=== PATIENT | male | born 1980 | race Caucasian/White ===

== ENCOUNTER 2022-10-28 00:49 | Emergency (ER) | payer OTHER ==
--- OUTSIDE RECORDS SUMMARY | 2022-10-28 00:53 | XMS REPORT | Continuity of Care Document ---
:1980 Author Organization [facility] t Address [address] [place] [address] [place] [id number] Care Team Providers Name Role Phone Thelma Schulte MD Primary Care Physician IRENE FAIR Attending Clinician Unavailable Thelma Schulte MD Attending Clinician TRI AGUIRRE Attending Clinician Unavailable THELMA SCHULTE Attending Clinician Unavailable GILL HEIN Attending Clinician Unavailable Mallory Valladares RN Attending Clinician Unavailable CHRISTEN CURRAN Attending Clinician Unavailable Lab, Adc Fam Pob I Attending Clinician Unavailable Gill Santacruz Attending Clinician Payers Payer Name Policy Type Policy Number Effective Date Expiration Date S ource CIGNA 2 [id number] 2018 00:00:00 CIGNA GENERIC [id number] 2018 00:00:00 Problems Condition Condition Condition Status Onset Resolution Last Treating Co mments Source Name Details Category Date Date Treatment Clinician Date No known No known Disease Unive rs active active ity of problems problems [facility] Allergies, Adverse Reactions, Alerts Allergy Allergy Status Severity Reaction(s) Onset Inactive Treating Comm ents Source Name Type Date Date Clinician NO KNOWN Drug Active Univers ALLERGIE Class ity of S [facility] Social History Social Habit Start Date Stop Date Quantity Comments Source Gender identity [facility] orientation [facility] History HADLEYGA Marielena Seybo ld Alcohol Std Drinks History SDOH Marielena Seybo ld Alcohol Binge History SDOH Marielena Seybo ld Alcohol Comment Exposure to Not sure Marielenaobdulio Bellol d SARS-CoV-2 (event) History of tobacco Chews Tobacco Prem obdulio Seybold use Alcohol intake 2020-12-24 2020-12-24 Lifetime Marielena Trejo bold 00:00:00 00:00:00 non-drinker (finding) History SDOH 2020-01-09 2020-01-09 1 Marielena Danielsonybo ld Alcohol Frequency 00:00:00 00:00:00 Tobacco use and 2020-01-09 2020-01-09 User of Marielena Danielson ybrenata exposure 00:00:00 00:00:00 smokeless tobacco Tobacco Comment 2016-07-05 2016-07-05 1 can every 2 Univer sity of 00:00:00 00:00:00 year [facility] Sex Assigned At [address] [facility] k[facility] 00:00:00 00:00:00 [facility] Smoking Status Start Date Stop Date Source Tobacco smoking consumption [facility] unknown Never smoker [facility] Medications Ordered Filled Start Stop Current Ordering Indication Dosage Frequency Signature Comments Components Source Medication Medication Date Date Medication? Clinician (SIG) Name Name TRAZODONE 2020-02 Yes Take by Chaya alfred HCL OR 0-29 mouth Seybold 10:11: 10 Omeprazole 2020-02 Yes Take by Marilyn ey (PRILOSEC 0-29 mouth Seybold OR) 10:11: 10 Meloxicam 2020-02 Yes [id number] One tablet Marielena 7.5 MG oral 0-29 by mouth Seyb old Tablet 00:00: BID prn 00 pain (take with food to prevent GI upset) Pantoprazol Yes [id number] One tablet Marielena e Sodium 20 8-16 by mouth Seyb old MG oral 00:00: BID Tablet 00 Delayed Response Albuterol 2019-02 Yes [id number] 1-2 puffs Marielena Sulfate 108 1-13 [id number] Q6 hours S eybold (90 Base) 00:00: PRN MCG/ACT 00 sob/wheezi inhalation ng AEROSOL POWDER, BREATH ACTIVATED benzonatate 2018-02 Yes [id number] 100mg Take 1 Univers 100 mg 1-06 capsule by ity of capsule 00:00: mouth 3 [place] 00 (three) Medical times Branch daily as needed for Cough. azithromyci 2018-02 Yes [id number] 250mg Take 1 Univers n 1-06 tablet by ity of (ZITHROMAX 00:00: mouth [place] Z-NELLY) 250 00 SEE-INSTRU Med ical mg tablet CTIONS. Branch Take 500 mg day 1, then 250 mg days 2 to 5. acetaminoph 2018-02 Yes [id number] 1{tbl} Take 1-2 Univers en-codeine 1-06 tablets by ity of 300-30 mg 00:00: mouth [place] tablet 00 every 4 Medical (four) Branch hours as needed (cough). loratadine- 2018-02 Yes [id number] 1{tbl} Take 1 Univers pseudoephed 1-06 tablet by ity of rine 00:00: mouth [place] (CLARITIN-D 00 daily. Medica l 24 HOUR) Branch 10-240 mg per 24 hr tablet benzonatate 2018-02 Yes [id number] 100mg Take 1 Univers 100 mg 1-06 capsule by ity of capsule 00:00: mouth 3 [place] 00 (three) Medical times Branch daily as needed for Cough. azithromyci 2018-02 Yes [id number] 250mg Take 1 Univers n 1-06 tablet by ity of (ZITHROMAX 00:00: mouth [place] Z-NELLY) 250 00 SEE-INSTRU Med ical mg tablet CTIONS. Branch Take 500 mg day 1, then 250 mg days 2 to 5. acetaminoph 2018-02 Yes [id number] 1{tbl} Take 1-2 Univers en-codeine 1-06 tablets by ity of 300-30 mg 00:00: mouth [place] tablet 00 every 4 Medical (four) Branch hours as needed (cough). loratadine- 2018-02 Yes [id number] 1{tbl} Take 1 Univers pseudoephed 1-06 tablet by ity of rine 00:00: mouth [place] (CLARITIN-D 00 daily. Medica l 24 HOUR) Branch 10-240 mg per 24 hr tablet benzonatate 2018-02 Yes [id number] 100mg Take 1 Univers 100 mg 1-06 capsule by ity of capsule 00:00: mouth 3 [place] 00 (three) Medical times Branch daily as needed for Cough. azithromyci 2018-02 Yes [id number] 250mg Take 1 Univers n 1-06 tablet by ity of (ZITHROMAX 00:00: mouth [place] Z-NELLY) 250 00 SEE-INSTRU Med ical mg tablet CTIONS. Branch Take 500 mg day 1, then 250 mg days 2 to 5. acetaminoph 2018-02 Yes [id number] 1{tbl} Take 1-2 Univers en-codeine 1-06 tablets by ity of 300-30 mg 00:00: mouth [place] tablet 00 every 4 Medical (four) Branch hours as needed (cough). loratadine- 2018-02 Yes [id number] 1{tbl} Take 1 Univers pseudoephed 1-06 tablet by ity of rine 00:00: mouth [place] (CLARITIN-D 00 daily. Medica l 24 HOUR) Branch 10-240 mg per 24 hr tablet ketorolac Yes [id number] 10mg Take 1 Un randy 10 mg 4-10 tablet by ity of tablet 00:00: mouth [place] 00 every 6 Medical (six) Branch hours as needed for Pain (scale 7-10). tamsulosin Yes [id number] .4mg Take 1 U nivers 0.4 mg 24 4-10 capsule by ity of hr capsule 00:00: mouth at Dev as 00 bedtime. Medical Branch ondansetron Yes [id number] 4mg Take 0.5 Univers 8 mg 4-10 tablets by ity of disintegrat 00:00: mouth [place] ing tablet 00 every 4 Medica l (four) Branch hours as needed for Nausea and Vomiting (N/V). ketorolac Yes [id number] 10mg Take 1 Un randy 10 mg 4-10 tablet by ity of tablet 00:00: mouth [place] 00 every 6 Medical (six) Branch hours as needed for Pain (scale 7-10). tamsulosin Yes [id number] .4mg Take 1 U nivers 0.4 mg 24 4-10 capsule by ity of hr capsule 00:00: mouth at Dev as 00 bedtime. Medical Branch ondansetron Yes [id number] 4mg Take 0.5 Univers 8 mg 4-10 tablets by ity of disintegrat 00:00: mouth [place] ing tablet 00 every 4 Medica l (four) Branch hours as needed for Nausea and Vomiting (N/V). ketorolac 2019- Yes [id number] 10mg Take 1 Un randy 10 mg 4-10 tablet by ity of tablet 00:00: mouth [place] 00 every 6 Medical (six) Branch hours as needed for Pain (scale 7-10). tamsulosin 2018- Yes [id number] .4mg Take 1 U nivers 0.4 mg 24 4-10 capsule by ity of hr capsule 00:00: mouth at Dev as 00 bedtime. Medical Branch ondansetron 2018-0 Yes [id number] 4mg Take 0.5 Univers 8 mg 4-10 tablets by ity of disintegrat 00:00: mouth [place] ing tablet 00 every 4 Medica l (four) Branch hours as needed for Nausea and Vomiting (N/V). Vital Signs Vital Name Observation Time Observation Value Comments Source Systolic blood pressure 2020-12-24 15:10:00 138 mm[Hg] Marielena Bellold Diastolic blood 2020-12-24 15:10:00 86 mm[Hg] Chaya Kennedy pressure Heart rate 2020-12-24 15:10:00 76 /min Marielena Rachid michaela Body temperature 2020-12-24 15:10:00 36.17 Vangie Marilyn ey Seybold Respiratory rate 2020-12-24 15:10:00 20 /min Marilyn liriano ybold Body height 2020-12-24 15:10:00 185.4 cm Marielena Rachid michaela Body weight 2020-12-24 15:10:00 127.914 kg Marielena S michaela BMI 2020-12-24 15:10:00 37.21 kg/m2 Marielena jennings Procedures Procedure Date / Time Performed Performing Clinician [facility] FOOT WEIGHT BEARING RIGHT 3 2020-12-24 15:00:01 Thelma Schulte V Plan of Care Planned Activity Planned Date Details Comments Source Future Scheduled 2022-10-24 COVID-19 VACCINE [facility] Test 01:06:00 (#1) [code = COVID-19 VACCINE (#1)] Future Scheduled 2022-10-24 [facility] Test 01:06:00 screening (procedure) [code = 737382112] Future Scheduled 2022-10-24 INFLUENZA VACCINE [facility] Test 01:06:00 (#1) [code = INFLUENZA VACCINE (#1)] Encounters Start End Encounter Admission Attending Care Care Encounter Source Date/Time Date/Time Type Type Clinicians Facility Department ID 2022-11-06 2022-11-06 Outpatient IRENE FAIR MARIELENA TAYLOR [id number] Marielena 14:30:00 14:30:00 Seybol d 2020-12-24 2020-12-24 Office ANGELY Schulte [id number] Marielena 09:40:30 09:55:30 Visit Thelma [id number] Se ybold [id number] 2020-12-24 2020-12-24 Outpatient MARIELENA TAYLOR [id number] Marielena 09:50:00 09:50:00 Seybol d 2020-10-19 2020-10-19 Outpatient ZACH TAYLOR [id number] Marielena 08:00:00 08:00:00 LIBRADO FRANCKIsaias dickerson 2020-10-13 2020-10-13 Outpatient MARIELENA SCHULTE [id number] Marielena 00:00:00 00:00:00 THELMA Seybol d 2020-10-12 2020-10-12 Outpatient [facility]ASH [facility] [id number] [place] 00:00:00 00:00:00 THELMA [address] 2020-10-11 2020-10-11 Outpatient MARIELENA SCHULTE [id number] Marielena 09:00:00 09:00:00 THELMA Seybol d 2019-09-02 2019-09-02 Outpatient Edi HEIN [facility] [id number] [facility] 08:20:00 08:20:00 GILL duque [facility] 2019-08-24 2019-08-24 Telephone TAYLOR Valladares [id number] Univers 00:00:00 00:00:00 Mallory CAMACH[id number] [facility] [id number] Dev as [id number] [address] 2019-08-24 2019-08-24 Telephone TAYLOR Valladares [id number] 00:00:00 00:00:00 Mallory S JANICE [id number] [facility] [id number] [facility] 2019-08-23 2019-08-23 Outpatient R BINA [facility] [id number] Univers 08:15:00 08:15:00 CHRISTEN ity [facility] 2019-08-15 2019-08-15 Laboratory Lab, Adc Fam Pob I [facility] [id number] Univers 10:19:59 10:39:59 Only Gill Hein [facility] [id number] [facility] [id number] Dev as [place] [id number] Ri dical [address] Office [address] 2019-08-15 2019-08-15 Outpatient R [facility] [id number] Univers 10:20:00 [facility]:20:00 [facility] This patient has no known results.
[2022-10-28 01:34] LABS: Absolute Lymphocytes (CBC) 1.3 K/uL (0.7-4.9); Hematocrit 44.8 % (39.6-49.0); Lymphocytes % 21.9 % (15.3-44.8); MCV 86.3 fL (80-100); MPV 7.8 fL (7.6-11.3); Platelets 209 thou/uL (152-406); RBC Red Blood Cell Count 5.19 M/uL (4.33-5.43)
[2022-10-28] MEDS ORDERED: NA CHLORIDE 0.9% 1,000 ML ONE (01:34)
[2022-10-28] MEDS ORDERED: KETOROLAC 30 MG/ML INJ ONE (01:34)
[2022-10-28 01:53] LABS: Albumin 4.2 g/dL (3.4-5.0); Bilirubin Total 0.3 mg/dL (0.2-1.0); Potassium 4.1 mEq/L (3.5-5.1); Protein, Total 7.9 g/dL (6.4-8.2)
[2022-10-28] MEDS ORDERED: TAMSULOSIN 0.4 MG SR CAP ONE (02:37)
[2022-10-28] MEDS ORDERED: MAGNESIUM SULFATE 1 gm IVPB 1 GM/100 ML BAG IV ONE (02:37)
[2022-10-28] MEDS ORDERED: MORPHINE 4 MG/ML SYR ONE (02:37)
--- NOTE | 2022-10-28 02:48 | EDPHYS ---
Physician Documentation [facility] Name: Shar Penny Age: 42 yrs Sex: Male : 1980 Arrival Date: 10/28/2022 Time: 00:49 Bed 8 Private MD: Derrell Siddiqi HPI: 10/28 01:36 This 42 yrs old Male presents to ER via Ambulatory with complaints of Possible Kidney snw Stone. 02:07 The patient complains of pain in the left mid back and abdomen. Onset: The snw symptoms/episode began/occurred acutely. The patient has experienced similar episodes in the past, multiple times. Historical: - Allergies: 01:01 No Known Allergies; vc1 - Home Meds: 01: None [Active]; vc1 - PMHx: 01:01 Kidney stone; vc1 - PSHx: 01:01 None; vc1 - Immunization history:: Client reports having NOT received the Covid vaccine. - Social history:: Smoking status: Patient reports use of chewing tobacco. ROS: 02:07 Constitutional: Negative for fever, chills, and weight loss, Eyes: Negative for injury, snw pain, redness, and discharge, ENT: Negative for injury, pain, and discharge, Neck: Negative for injury, pain, and swelling, Cardiovascular: Negative for chest pain, palpitations, and edema, Respiratory: Negative for shortness of breath, cough, wheezing, and pleuritic chest pain, Back: Negative for injury and pain, : Negative for injury, bleeding, discharge, and swelling, MS/Extremity: Negative for injury and deformity, Skin: Negative for injury, rash, and discoloration, Neuro: Negative for headache, weakness, numbness, tingling, and seizure, Psych: Negative for depression, anxiety, suicide ideation, homicidal ideation, and hallucinations. 02:07 Abdomen/GI: Positive for abdominal pain, nausea, of the left lower quadrant. Exam: 02:06 Constitutional: This is a well developed, well nourished patient who is awake, alert, snw and in no acute distress. Head/Face: Normocephalic, atraumatic. Eyes: Pupils equal round and reactive to light, extra-ocular motions intact. Lids and lashes normal. Conjunctiva and sclera are non-icteric and not injected. Cornea within normal limits. Periorbital areas with no swelling, redness, or edema. ENT: Nares patent. No nasal discharge, no septal abnormalities noted. Tympanic membranes are normal and external auditory canals are clear. Oropharynx with no redness, swelling, or masses, exudates, or evidence of obstruction, uvula midline. Mucous membranes moist. Neck: Trachea midline, no thyromegaly or masses palpated, and no cervical lymphadenopathy. Supple, full range of motion without nuchal rigidity, or vertebral point tenderness. No Meningismus. Chest/axilla: Normal chest wall appearance and motion. Nontender with no deformity. No lesions are appreciated. Cardiovascular: Regular rate and rhythm with a normal S1 and S2. No gallops, murmurs, or rubs. Normal PMI, no JVD. No pulse deficits. Respiratory: Lungs have equal breath sounds bilaterally, clear to auscultation and percussion. No rales, rhonchi or wheezes noted. No increased work of breathing, no retractions or nasal flaring. Back: No spinal tenderness. No costovertebral tenderness. Full range of motion. Skin: Warm, dry with normal turgor. Normal color with no rashes, no lesions, and no evidence of cellulitis. MS/ Extremity: Pulses equal, no cyanosis. Neurovascular intact. Full, normal range of motion. Neuro: Awake and alert, GCS 15, oriented to person, place, time, and situation. Cranial nerves II-XII grossly intact. Motor strength 5/5 in all extremities. Sensory grossly intact. Cerebellar exam normal. Normal gait. Psych: Awake, alert, with orientation to person, place and time. Behavior, mood, and affect are within normal limits. 02:06 Abdomen/GI: Inspection: abdomen appears normal, Bowel sounds: normal, Palpation: moderate abdominal tenderness, in all quadrants, in the left lower quadrant. Vital Signs: 01:00 Weight 133.81 kg; Height 6 ft. 1 in. ; Pain 6/10; vc1 01:04 BP 121 / 93; Pulse 80; Resp 20; Temp 99.1; Pulse Ox 95% ; vc1 03:26 BP 137 / 95; Pulse 73; Resp 16; Temp 98; Pulse Ox 96% on R/A; rv 01:00 Body Mass Index 38.92 (133.81 kg, 185.42 cm) vc1 01:00 Pain Scale: Adult vc1 MDM: 01:22 Patient medically screened. richard 02:18 Differential diagnosis: nephrolithiasis, pyelonephritis, UTI. Data reviewed: vital snw signs, nurses notes, lab test result(s), radiologic studies. I considered the following discharge prescriptions or medication management in the emergency department Medications were administered in the Emergency Department. See MAR. Counseling: I had a detailed discussion with the patient and/or guardian regarding the historical points, exam findings, and any diagnostic results supporting the discharge/admit diagnosis, the presence of at least one elevated blood pressure reading (>120/80) during this emergency department visit, lab results, radiology results, the need for outpatient follow up, for definitive care, to return to the emergency department if symptoms worsen or persist or if there are any questions or concerns that arise at home. Response to treatment: the patient's symptoms have mildly improved after treatment. Special discussion: Based on the patient's Hx, exam, and Dx evaluation, there is no indication for emergent surgery or inpatient Tx. It is understood by the patient/guardian that if the Sx's persist or worsen they need to return immediately for re-evaluation. Based on the history and exam findings, there is no indication for further emergent testing or inpatient evaluation. I discussed with the patient/guardian the need to see the primary care provider for further evaluation of the symptoms. I discussed with the patient/guardian the need to see the urologist for further evaluation of the symptoms. 10/28 00:56 Order name: CBC with Diff; Complete Time: 02:14 snw 10/28 00:56 Order name: CMP; Complete Time: 01:55 snw 10/28 00:56 Order name: Lipase; Complete Time: 01:55 snw 10/28 00:56 Order name: CT Stone Protocol w 10/28 00:56 Order name: IV Saline Lock; Complete Time: 01:17 snw 10/28 00:56 Order name: Labs collected and sent; Complete Time: 01:17 snw Administered Medications: 01:25 Drug: NS 0.9% IV 1000 ml Route: IV; Rate: 1 bolus; Site: right antecubital; bp 03:38 Follow up: IV Status: Completed infusion; IV Intake: 1000ml rv 01:26 Drug: Ketorolac IVP 15 mg Route: IVP; Site: right antecubital; bp 03:38 Follow up: Response: No adverse reaction rv 02:31 Drug: morphine IVP or IV 4 mg Route: IVP; Infused Over: 4 mins; Site: right antecubital;bp 03:38 Follow up: Response: No adverse reaction rv 02:31 Drug: Magnesium Sulfate IVPB 1 grams Route: IVPB; Infused Over: 1 hrs; Site: right bp antecubital; 03:37 Follow up: Response: No adverse reaction; IV Status: Completed infusion rv 02:31 Drug: Flomax PO 0.4 mg Route: PO; bp 03:37 Follow up: Response: No adverse reaction rv Disposition Summary: 10/28/22 02:47 Discharge Ordered Location: Home snw Condition: Stable snw Diagnosis - Hydronephrosis with renal and ureteral calculous obstruction snw Followup: snw - With: Emergency Department - When: As needed - Reason: Worsening of condition Followup: snw - With: Private Physician - When: 2 - 3 days - Reason: Recheck today's complaints, Continuance of care, Re-evaluation by your physician Discharge Instructions: - Discharge Summary Sheet snw - Kidney Stones snw - Renal Colic snw - Hydronephrosis snw - Dietary Guidelines to Help Prevent Kidney Stones snw - Rehydration, Adult snw Forms: - Work release form snw - Medication Reconciliation Form snw - Thank You Letter snw - Antibiotic Education snw - Prescription Opioid Use snw - Patient Portal Instructions snw - Leadership Thank You Letter snw Prescriptions: - acetaminophen-codeine 300-30 mg Oral tablet - take 1 tablet by ORAL route every 6 hours as needed for pain; 18 tablet; snw Refills: 0, Product Selection Permitted - Mobic 7.5 mg Oral Tablet - take 1 tablet by ORAL route once daily take with food; 20 tablet; Refills: 0, snw Product Selection Permitted - promethazine 25 mg Oral Tablet - take 1 tablet by ORAL route every 6 hours As needed; 20 tablet; Refills: 0, snw Product Selection Permitted Signatures: Dispatcher [employer] Derrell Garcia MD MD cha Waters, Shelly, AYAKA-C BELLPERSON-Csnw Jose Ramon Chauhan, RN RN bp Candy Crisostomo RN RN vc1 Levi Mane RN rv
--- NOTE | 2022-10-28 02:48 | ER ---
Nurse's Notes [facility] Name: Shar Penny Age: 42 yrs Sex: Male : 1980 Arrival Date: 10/28/2022 Time: 00:49 Bed 8 Private MD: Diagnosis: Hydronephrosis with renal and ureteral calculous obstruction Presentation: 10/28 01:00 Chief complaint: Patient states: Severe abdominal pain, vomiting, I think I have vc1 another kidney stone. Coronavirus screen: Client denies travel out of the [place] in the last 14 days. At this time, the client does not indicate any symptoms associated with coronavirus-19. Ebola Screen: Patient negative for fever greater than or equal to 101.5 degrees Fahrenheit, and additional compatible Ebola Virus Disease symptoms Patient denies exposure to infectious person. Patient denies travel to an Ebola-affected area in the 21 days before illness onset. No symptoms or risks identified at this time. Onset of symptoms was October 27, 2022. 01:00 Method Of Arrival: Ambulatory vc1 01:00 Acuity: SCOTT 3 vc1 01:06 Initial Sepsis Screen: Does the patient meet any 2 criteria? No. Patient's initial vc1 sepsis screen is negative. Does the patient have a suspected source of infection? No. Patient's initial sepsis screen is negative. Risk Assessment: Do you want to hurt yourself or someone else? Patient reports no desire to harm self or others. Triage Assessment: 01:02 General: Appears in no apparent distress. uncomfortable, Behavior is calm, cooperative, vc1 appropriate for age. Pain: Complains of pain in right lower quadrant and left lower quadrant Pain radiates to low back area Pain currently is 6 out of 10 on a pain scale. at worst was 12 out of 10 on a pain scale. Quality of pain is described as sharp, Pain began 1 day ago. Is continuous, Noted to be grimacing. EENT: No deficits noted. No signs and/or symptoms were reported regarding the EENT system. Neuro: Level of Consciousness is awake, alert, obeys commands, Oriented to person, place, time, situation, Appropriate for age. Cardiovascular: No deficits noted. Respiratory: No deficits noted. GI: Reports lower abdominal pain. : Denies burning with urination, inability to void, urinary frequency. Derm: No deficits noted. No signs and/or symptoms reported regarding the dermatologic system. Musculoskeletal: No deficits noted. No signs and/or symptoms reported regarding the musculoskeletal system. Historical: - Allergies: 01:01 No Known Allergies; vc1 - Home Meds: 01:01 None [Active]; vc1 - PMHx: 01:01 Kidney stone; vc1 - PSHx: 01:01 None; vc1 - Immunization history:: Client reports having NOT received the Covid vaccine. - Social history:: Smoking status: Patient reports use of chewing tobacco. Screenin:06 Abuse screen: Denies threats or abuse. Nutritional screening: No deficits noted. vc1 Tuberculosis screening: No symptoms or risk factors identified. 01:18 [facility] ED Fall Risk Assessment (Adult) History of falling in the last 3 months, rv including since admission No falls in past 3 months (0 pts) Score/Fall Risk Level 0 - 2 = Low Risk Oriented to surroundings, Maintained a safe environment, Educated pt \T\ family on fall prevention, incl call for assistance when getting out of bed, Assessed \T\ reinforced patient's understanding of fall precautions, Provided non-skid footwear, Hourly rounding (assess needs \T\ fall precautionary measures) done, Used ambulatory aids as needed (educated on \T\ assisted with), Used gait belt as appropriate. Assessment: 01:17 Reassessment:. General: Appears comfortable, Behavior is calm, cooperative. Pain: rv Complains of pain in low back area. Neuro: Level of Consciousness is awake, alert, obeys commands, Oriented to person, place, time, situation. Cardiovascular: Capillary refill < 3 seconds Patient's skin is warm and dry. Respiratory: Airway is patent Respiratory effort is even, unlabored. GI: Bowel sounds present X 4 quads. Abd is soft and non tender X 4 quads. Reports nausea. : No signs and/or symptoms were reported regarding the genitourinary system. Derm: Skin is intact. Vital Signs: 01:00 Weight 133.81 kg; Height 6 ft. 1 in. ; Pain 6/10; vc1 01:04 BP 121 / 93; Pulse 80; Resp 20; Temp 99.1; Pulse Ox 95% ; vc1 03:26 BP 137 / 95; Pulse 73; Resp 16; Temp 98; Pulse Ox 96% on R/A; rv 01:00 Body Mass Index 38.92 (133.81 kg, 185.42 cm) vc1 01:00 Pain Scale: Adult vc1 ED Course: 00:51 Patient arrived in ED. mr 01:01 Triage completed. vc1 01:02 Arm band placed on right wrist. vc1 01:07 Jose Ramon Chauhan, ZABRINA is Primary Nurse. bp 01:08 Kayla Matute FNP-C is PHCP. snw 01:08 Derrell Oleary MD is Attending Physician. snw 01:17 Inserted saline lock: 20 gauge in right antecubital area, using aseptic technique. bp Blood collected. 01:18 Patient has correct armband on for positive identification. Bed in low position. Call rv light in reach. Side rails up X 1. Provided Education on: KIDNEY STONES. Client placed on continuous cardiac and pulse oximetry monitoring. NIBP monitoring applied. 01:18 No provider procedures requiring assistance completed. rv 01:47 CT Stone Protocol In Process Unspecified. EDMS 03:38 IV discontinued, intact, bleeding controlled, No redness/swelling at site. Pressure rv dressing applied. Administered Medications: 01:25 Drug: NS 0.9% IV 1000 ml Route: IV; Rate: 1 bolus; Site: right antecubital; bp 03:38 Follow up: IV Status: Completed infusion; IV Intake: 1000ml rv 01:26 Drug: Ketorolac IVP 15 mg Route: IVP; Site: right antecubital; bp 03:38 Follow up: Response: No adverse reaction rv 02:31 Drug: morphine IVP or IV 4 mg Route: IVP; Infused Over: 4 mins; Site: right antecubital;bp 03:38 Follow up: Response: No adverse reaction rv 02:31 Drug: Magnesium Sulfate IVPB 1 grams Route: IVPB; Infused Over: 1 hrs; Site: right bp antecubital; 03:37 Follow up: Response: No adverse reaction; IV Status: Completed infusion rv 02:31 Drug: Flomax PO 0.4 mg Route: PO; bp 03:37 Follow up: Response: No adverse reaction rv Medication: 01:18 VIS not applicable for this client. rv Intake: 03:38 IV: 1000ml; Total: 1000ml. rv Outcome: 02:47 Discharge ordered by . snw 03:37 Discharged to home ambulatory, with family. rv 03:37 Condition: improved 03:37 Discharge instructions given to patient, Instructed on discharge instructions, follow up and referral plans. medication usage, Demonstrated understanding of instructions, follow-up care, medications, Prescriptions given X 3. 03:38 Patient left the ED. rv Signatures: Dispatcher [employer] EDMS Kayla Matute, BUCCARO-C BUCCARO-Csnw MacarioBrittany Brian, RN RN Levi Phillips RN RN rv Candy Crisostomo RN RN vc1
[2022-10-28 03:44] VITALS: BP 137/95; TEMP 98; O2SAT 96
--- NOTE | 2022-10-28 20:41 | RAD REPORT ---
EXAM DESCRIPTION: CT - Stone Protocol - 10/28/2022 6:21 am CLINICAL HISTORY: The patient is 42 years old and is Male; KIDNEY STONES TECHNIQUE: Axial computed tomography images of the abdomen and pelvis without intravenous contrast. Sagittal and coronal reformatted images were created and reviewed. This CT exam was performed usi ng one or more of the following dose reduction techniques: automated exposure control, adjustment o f the mA and/or kV according to patient size, and/or use of iterative reconstruction technique. DLP: 1774 mGy*cm COMPARISON: None. FINDINGS: LUNG BASES: Lung bases are clear. HEART: Visualized heart is normal. ABDOMEN: LIVER: Hepatic steatosis. GALLBLADDER AND BILE DUCTS: Unremarkable. No calcified stones. No ductal dilation. PANCREAS: Unremarkable. No ductal dilation. SPLEEN: Unremarkable. No splenomegaly. ADRENALS: Unremarkable. No mass. KIDNEYS AND URETERS: 3 mm mid left ureteral stone with mild hydronephrosis and hydroureter. Additional punctate nonobstructive bilateral renal stones. STOMACH AND BOWEL: Unremarkable. No obstruction. No mucosal thickening. PELVIS: APPENDIX: The appendix is seen and is within normal limits. BLADDER: Bladder is decompressed. No stones. REPRODUCTIVE: Unremarkable as visualized. ABDOMEN and PELVIS: INTRAPERITONEAL SPACE: Unremarkable. No free air. No significant fluid collection. BONES/JOINTS: L5-S1 degenerative changes. No acute fracture. No dislocation. SOFT TISSUES: Fat-containing bilateral inguinal hernias, left larger than right. VASCULATURE: Unremarkable. No abdominal aortic aneurysm. LYMPH NODES: Unremarkable. No enlarged lymph nodes. IMPRESSION: 1. 3 mm mid left ureteral stone with mild hydronephrosis and hydroureter. Correlate with urinalysis for superimposed infectious process. 2. Additional punctate nonobstructive bilateral renal stones. 3. Hepatic steatosis. 4. Fat-containing bilateral inguinal hernias, left larger than right. Electronically signed by: Jeffery Chadwick DO 10/28/2022 2:06 AM CDT Due to temporary technical issues with the PACS/Fluency reporting system, reports are being signed by the in house radiologists without review as a courtesy to insure prompt reporting. The interpreting radiologist is fully responsible for the content of the report.
== END 2022-10-28 03:38 | disposition home or self-care (01) ==
LOC: ER 00:49
DX: N13.2 Hydronephrosis with renal and ureteral calculous obstruction (principal); Z87.442 Personal history of urinary calculi
CPT/HCPCS: 96365; 96361; 85025; 36415; 83690; 80053; 76377; 74176; 96375; 99284; J3475; J7030

== ENCOUNTER 2024-12-16 20:37 | Emergency (ER) | payer BC, OTHER ==
[2024-12-16] MEDS ORDERED: CEFDINIR 300 MG CAP PO ONE (21:03)
[2024-12-16] MEDS ORDERED: METOCLOPRAMIDE 5 MG TAB ONE (21:03)
[2024-12-16] MEDS ORDERED: KETOROLAC 10 MG TAB ONE (21:03)
[2024-12-16 21:11] LABS: Influenza A Ag Negative; Influenza B Ag Negative; SARS-CoV-2 Antigen Rapid Res Negative (Negative)
--- NOTE | 2024-12-16 21:31 | ER ---
Nurse's Notes [facility] Name: Shar Penny Age: 44 yrs Sex: Male : 1980 Arrival Date: 12/16/2024 Time: 20:37 Bed 20 Private MD: Diagnosis: Acute pharyngitis, acute upper respiratory infection Presentation: 12/16 20:49 Chief complaint: Patient states: WOKE UP THIS MORNING WITH COUGH, GREEN MUCUS, dd2 SNEEZING, SORE THROAT, CONGESTION ADN FEVER. PT REPORTS TAKING ANTIBIOTICS FOR TOOTH PULLED YESTERDAY. Coronavirus screen: congestion, cough unrelated to allergies, fever, runny nose, sore throat. Ebola Screen: No symptoms or risks identified at this time. Resp Distress? No respiratory distress is noted at this time. Initial Sepsis Screen: Does the patient meet any 2 criteria? No. Patient's initial sepsis screen is negative. Does the patient have a suspected source of infection? No. Patient's initial sepsis screen is negative. Risk Assessment: Do you want to hurt yourself or someone else? Patient reports no desire to harm self or others. Onset of symptoms was December 16, 2024. 20:49 Method Of Arrival: Ambulatory dd2 20:49 Acuity: SCOTT 3 dd2 Triage Assessment: 20:52 General: Appears in no apparent distress. uncomfortable, Behavior is calm, cooperative, dd2 appropriate for age. Pain: Complains of pain in throat. EENT: Reports difficulty swallowing nasal congestion nasal discharge pain when swallowing. Respiratory: Reports cough that is productive, Breath sounds are clear bilaterally. Historical: - Allergies: 20:52 No Known Allergies; dd2 - PMHx: 20:52 Kidney stone; dd2 - PSHx: 20:52 None; dd2 - Immunization history:: Adult Immunizations up to date. - Infectious Disease History:: Denies. - Social history:: Smoking status: Patient denies any tobacco usage or history of. - Family history:: not pertinent. Screenin:45 [facility] ED Fall Risk Assessment (Adult) History of falling in the last 3 months, nh2 including since admission No falls in past 3 months (0 pts) Confusion or Disorientation No (0 pts) Intoxicated or Sedated No (0 pts) Impaired Gait No (0 pts) Mobility Assist Device Used No (0 pt) Altered Elimination No (0 pt) Score/Fall Risk Level 0 - 2 = Low Risk Oriented to surroundings, Maintained a safe environment, Educated pt \T\ family on fall prevention, incl call for assistance when getting out of bed, Assessed \T\ reinforced patient's understanding of fall precautions. Abuse screen: Denies threats or abuse. Denies injuries from another. Nutritional screening: No deficits noted. Tuberculosis screening: No symptoms or risk factors identified. Assessment: 20:45 General: Appears uncomfortable, Behavior is calm, cooperative, appropriate for age, nh2 Reports chills for 12-24 hours, fever for 12-24 hours, feeling ill for 12-24 hours. Pain: Complains of pain in head Pain does not radiate. Pain currently is 6 out of 10 on a pain scale. Quality of pain is described as aching, Pain began 1 day ago. Is intermittent. Neuro: Level of Consciousness is awake, alert, obeys commands, Oriented to person, place, time, situation, Appropriate for age Asphalt Tamper are equal bilaterally Reports headache. Cardiovascular: Denies chest pain, Heart tones S1 S2 present Patient's skin is warm and dry. Respiratory: Airway is patent Respiratory effort is even, unlabored, Respiratory pattern is regular, symmetrical, Breath sounds are clear bilaterally. GI: Abdomen is round non-distended, Patient currently denies nausea, vomiting. : No signs and/or symptoms were reported regarding the genitourinary system. EENT: Reports difficulty swallowing nasal congestion. Derm: Skin is pink, warm \T\ dry. Musculoskeletal: Circulation, motion, and sensation intact. Range of motion: intact in all extremities. 21:39 Reassessment: Patient and/or family updated on plan of care and expected duration. Pain nh2 level reassessed. Patient is alert, oriented x 3, equal unlabored respirations, skin warm/dry/pink. Patient states feeling better. Vital Signs: 20:49 BP 129 / 73; Pulse 107; Resp 18; Temp 99.9; Pulse Ox 96% on R/A; dd2 21:39 BP 134 / 77; Pulse 18; Resp 18; Temp 99.4(O); Pulse Ox 100% on R/A; nh2 Dell Coma Score: 12/17 00:11 Eye Response: spontaneous(4). Motor Response: obeys commands(6). Verbal Response: sp4 oriented(5). Total: 15. ED Course: 12/16 20:41 Patient arrived in ED. gm2 20:45 Paco Chiu MD is Attending Physician. sp4 20:45 Patient has correct armband on for positive identification. Bed in low position. Call nh2 light in reach. Side rails up X 1. Provided Education on: using call light for assistance. 20:50 COVID swab sent to lab. Flu and/or RSV swab sent to lab. nh2 20:52 Cecilio Deleon Jr, ZABRINA is Primary Nurse. nh2 20:52 Triage completed. dd2 20:52 Arm band placed on right wrist. dd2 20:56 No provider procedures requiring assistance completed. nh2 21:40 Patient did not have IV access during this emergency room visit. nh2 Administered Medications: 21:07 Drug: Ketorolac PO 10 mg PO once Route: PO; nh2 21:40 Follow up: Response: No adverse reaction nh2 21:07 Drug: MetoCLOPramide PO 10 mg PO once Route: PO; nh2 21:40 Follow up: Response: No adverse reaction nh2 21:07 Drug: Cefdinir PO 300 mg PO once Route: PO; nh2 21:40 Follow up: Response: No adverse reaction nh2 Medication: 20:45 VIS not applicable for this client. nh2 Outcome: 21:30 Discharge ordered by . sp4 21:40 Discharged to home ambulatory, with significant other, nh2 21:40 Condition: stable 21:40 Discharge instructions given to patient, significant other, Instructed on discharge instructions, follow up and referral plans. medication usage, Demonstrated understanding of instructions, follow-up care, medications, Prescriptions given X 2, 21:41 Patient left the ED. nh2 Signatures: Paco Chiu MD MD sp4 Paty Berger 2 ITZEL KIRKPATRICK RN RN dd2 Cecilio Deleon Jr, RN RN nh2 Corrections: (The following items were deleted from the chart) 20:56 20:45 General: Appears uncomfortable, Behavior is calm, cooperative, appropriate for nh2 age, Reports chills for fever for feeling ill for 12-24 hours, nh2 20:57 20:45 EENT: Reports nasal congestion nh2 nh2
--- NOTE | 2024-12-16 21:31 | EDPHYS ---
Physician Documentation [facility] Name: Shar Penny Age: 44 yrs Sex: Male : 1980 Arrival Date: 12/16/2024 Time: 20:37 Bed 20 Private MD: ED Physician Paco Chiu HPI: 12/16 21:29 This 44 yrs old Male presents to ER via Ambulatory with complaints of Fever, sp4 Cough, Congestion, Runny Nose. 12/17 00:11 Patient reports he had dental extraction yesterday of right lower molar.. Also sp4 yesterday patient developed sore throat cough congestion runny nose. Historical: - Allergies: 12/16 20:52 No Known Allergies; dd2 - PMHx: 20:52 Kidney stone; dd2 - PSHx: 20:52 None; dd2 - Immunization history:: Adult Immunizations up to date. - Infectious Disease History:: Denies. - Social history:: Smoking status: Patient denies any tobacco usage or history of. - Family history:: not pertinent. ROS: 12/17 00:11 Constitutional: Negative for fever, chills, and weight loss, positive for cough sp4 congestion runny nose, positive for sore throat All other systems are negative, Exam: 00:11 Constitutional: This is a well developed, well nourished patient who is awake, alert, sp4 and in no acute distress. Head/Face: Normocephalic, atraumatic. Eyes: Pupils equal round and reactive to light, extra-ocular motions intact. Lids and lashes normal. Conjunctiva and sclera are not injected. Cornea within normal limits. Periorbital areas with no swelling, redness, or edema. ENT: Nares patent. No nasal discharge, no septal abnormalities noted. Tympanic membranes are normal and external auditory canals are clear. Oropharynx with no redness, swelling, or masses, exudates, or evidence of obstruction, uvula midline. Mucous membranes moist. Neck: Trachea midline, no thyromegaly or masses palpated, and no cervical lymphadenopathy. Supple, full range of motion without nuchal rigidity, or vertebral point tenderness. Chest/axilla: Normal chest wall appearance and motion. Nontender with no deformity. No lesions are appreciated. Cardiovascular: Regular rate and rhythm with a normal S1 and S2. No gallops, murmurs, or rubs. No pulse deficits. Respiratory: Lungs have equal breath sounds bilaterally, clear to auscultation and percussion. No rales, rhonchi or wheezes noted. No increased work of breathing, no retractions or nasal flaring. Abdomen/GI: Soft, with normal bowel sounds. No distension or tympany. No guarding or rebound. No evidence of tenderness throughout. Back: No spinal tenderness. No costovertebral tenderness. Skin: Warm, dry with normal turgor. Normal color with no rashes, no lesions, and no evidence of cellulitis. MS/ Extremity: Pulses equal, no cyanosis. Neurovascular intact. Full, normal range of motion. Neuro: Awake and alert, GCS 15, oriented to person, place, time, and situation. Cranial nerves II-XII grossly intact. Motor strength 5/5 in all extremities. Sensory grossly intact. Psych: Awake, alert, with orientation to person, place and time. Behavior, mood, and affect are within normal limits Vital Signs: 12/16 20:49 BP 129 / 73; Pulse 107; Resp 18; Temp 99.9; Pulse Ox 96% on R/A; dd2 21:39 BP 134 / 77; Pulse 18; Resp 18; Temp 99.4(O); Pulse Ox 100% on R/A; nh2 Bartley Coma Score: 12/17 00:11 Eye Response: spontaneous(4). Motor Response: obeys commands(6). Verbal Response: sp4 oriented(5). Total: 15. MDM: 12/16 20:46 Medical Screening Exam initiated sp4 12/17 00:11 Differential diagnosis: viral Infection, bacterial infection, gastroenteritis, sp4 meningitis. Data reviewed: vital signs, nurses notes, lab test result(s), Flu: negative. ED course: Influenza and COVID-19 negative today. Stable for discharge home.. 12/16 20:46 Order name: COVID-19 Ag + Flu A+B Ag; Complete Time: 21:26 sp4 Administered Medications: 12/16 21:07 Drug: Ketorolac PO 10 mg PO once Route: PO; nh2 21:40 Follow up: Response: No adverse reaction 21:07 Drug: MetoCLOPramide PO 10 mg PO once Route: PO; nh2 21:40 Follow up: Response: No adverse reaction nh2 21:07 Drug: Cefdinir PO 300 mg PO once Route: PO; nh2 21:40 Follow up: Response: No adverse reaction nh2 Disposition Summary: 12/16/24 21:30 Discharge Ordered Notes: Location: Home sp4 Problem: new sp4 Symptoms: have improved sp4 Condition: Stable sp4 Diagnosis - Acute pharyngitis, acute upper respiratory infection sp4 Followup: sp4 - With: Private Physician - When: 7 - 10 days - Reason: Recheck today's complaints Discharge Instructions: - Discharge Summary Sheet sp4 - Pharyngitis, [id number] sp4 Forms: - Patient Portal Instructions sp4 Prescriptions: - cefdinir 300 mg Oral capsule - take 1 capsule ORAL route every 12 hours; 20 capsule; Refills: 0, Product sp4 Selection Permitted - meloxicam 15 mg Oral tablet - take 1 tablet ORAL route daily PRN pain; 30 tablet; Refills: 0, Product sp4 Selection Permitted Signatures: Dispatcher [employer] Paco Robles MD MD sp4 ITZEL KIRKPATRICK RN RN dd2 Cecilio Deleon Jr, RN RN nh2
[2024-12-17 00:21] VITALS: BP 134/77; TEMP 99.4; O2SAT 100
== END 2024-12-16 21:41 | disposition home or self-care (01) ==
LOC: ER 20:37
DX: J06.9 Acute upper respiratory infection, unspecified (principal); Z11.52 Encounter for screening for COVID-19; Z98.818 Other dental procedure status
CPT/HCPCS: 36415; 87428; 99284